=== PATIENT | female | born 1980 | race Caucasian/White ===

== ENCOUNTER → 2017-07-31 | Outpatient (CLI) | payer BC ==
[~2017-07-31] MED LIST: ACET-3017 PO; IBUP800T37 PO; LACT460C3 PO; PANT40TA65 PO
--- NOTE | 2017-07-31 09:55 | RADIOLOGY IMAGING REPORT ---
[place] [facility] [place] NAME: Tara Stoner : 1980 MR: [id number] V: [id number] EXAM DATE: ORDERING PHYSICIAN: ABDULAZIZ COSME TECHNOLOGIST: [place] [facility] [place] Traa Stoner : 1980 Visit/Account:[id number] Date of Sevice: 07/31/2017 GALLBLADDER HISTORY: Belching COMPARISON: None. FINDINGS: Gallbladder: A small amount layering debris identified within the gallbladder. There is no evidence of gallbladder wall thickening. There was a positive Rene sign by technologist notation. Liver: Negative. Common duct: Normal, 3.9 mm diameter. Pancreas: Unremarkable Right kidney: Right kidney appears unremarkable as imaged measuring 10.5 cm in length with no evidenc e of hydronephrosis Upper abdominal aorta and IVC: Patent. Ascites: None visualized. IMPRESSION: There is a small matter decreasing within the gallbladder although no evidence of gallbladder wall th ickening or biliary ductal dilatation. There was a positive Rene sign by technologist notation Report Dictated By: Kymberly Manzanares MD at 07/31/2017 9:49 AM Report E-Signed By: Kymberly Manzanares MD at 07/31/2017 9:51 AM HENRYN:YULIANA
== END ==
LOC: US 07-27 01:51
PROVIDERS: ATTEND Surgery
DX: K81.9 Cholecystitis, unspecified (principal); R19.8 Other specified symptoms and signs involving the digestive system and abdomen
CPT/HCPCS: 76705

== ENCOUNTER 2017-08-20 00:40 | Day surgery (SDC) | payer BC ==
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
[~2017-08-20] VITALS: Ht 157.5 cm; Wt 57.6 kg
[2017-08-20] VITALS (7 sets, daily range): BP systolic 106–116; BP diastolic 60–80
[2017-08-20 06:38] LABS: PLATELET COUNT, AUTOMATED 237 K/uL (150-450)
[2017-08-20] MEDS ORDERED: NORMOSOL R SOLN(*) 1000 ML BAG 1,000 ML IV PRN (06:45)
[2017-08-20] MEDS ORDERED: LIDOCAINE/SOD BICARB 8.4% SYR ID ONE (06:45)
[2017-08-20] MEDS ORDERED: MIDAZOLAM 2 MG/2 ML VIAL IVP PRN (06:45)
[2017-08-20] MEDS ORDERED: FAMOTIDINE 20 MG TAB PO ONE (06:45)
[2017-08-20] MEDS ORDERED: CELECOXIB 200 MG CAP PO ONE (06:45)
[2017-08-20] MEDS ORDERED: INDOCYANINE GREEN 25 MG VIAL IVP ONE (06:45)
[2017-08-20] MEDS ORDERED: AMPICILLIN/SULBACT (*) 3 GM VL 3 GM in NS(*) 0.9% 100 ML BAG 100 ML IVPB ONE (06:45)
[2017-08-20] MEDS ORDERED: cefOXitin/DEX(*) 2GM/50ML PREM 50 ML IVPB ONE (06:45)
[2017-08-20] MEDS ORDERED: HYDROmorphone HCL 2 MG TAB PO ONE (06:45)
--- NOTE | 2017-08-20 07:35 | Post Operative Note ---
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
[2017-08-20] MEDS ORDERED: DEXAMETHASONE SOD PHOS 10MG/ML ONE (07:36)
[2017-08-20] MEDS ORDERED: ONDANSETRON 4 MG/2 ML VIAL ONE ×2 (07:36→09:36)
[2017-08-20] MEDS ORDERED: ROCURONIUM BROM 10 MG/ML 10 ML ONE (07:36)
[2017-08-20] MEDS ORDERED: LIDOCAINE MPF 1% 5 ML VIAL ONE (07:36)
[2017-08-20] MEDS ORDERED: PROPOFOL EMUL(*) 10MG/ML 20 ML 40 ML ONE (07:36)
[2017-08-20] MEDS ORDERED: KETOROLAC 30 MG/ML VIAL ONE (07:37)
[2017-08-20] MEDS ORDERED: fentaNYL CITR 100 MCG/2 ML AMP ONE ×2 (07:39→09:32)
[2017-08-20] MEDS ORDERED: SUGAMMADEX SOD 200 MG/2 ML SDV ONE (09:01)
[2017-08-20] MEDS ORDERED: HYDROmorphone HCL 2 MG/ML SDV ONE (09:03)
[2017-08-20] MEDS ORDERED: OXYC-854 PO (09:35)
[2017-08-20] MEDS ORDERED: DOCU-416 PO (09:35)
--- NOTE | 2017-08-20 09:39 | Short(Outpt) Discharge Summary ---
Discharge Summary Reason for Hosp/Final Diag: (1) Cholelithiasis Status: Chronic Hospital Course & Plan: Robotic cholecystectomy by Dr. Cosme and diagnostic laparoscopy with gynecologic biopsies by Dr. Grant completed without problems. (2) Nausea Status: Chronic (3) Upper abdominal pain Status: Chronic Departure Discharge to: Home, Self Care Discharge Instructions Home Meds Active Scripts Docusate Sodium (COLACE) 100 Mg Capsule, 1 CAP PO BID, #30 CAP 0 Refills TAKE WITH A FULL GLASS OF WATER Prov:ABDULAZIZ COSME MD 08/20/17 Oxycodone Hcl/Acet 5/325 Mg (ENDOCET 5-325 TABLET) 1 Each Tablet, 1-2 TAB PO Q4H Y for PAIN, #30 TAB 0 Refills Prov:ABDULAZIZ COSME MD 08/20/17 Reported Medications Lactobacillus Acidophilus (FLORAJEN) 460 Mg Capsule, 460 MG PO QDAY, CAPSULE 07/20/17 Ibuprofen (IBUPROFEN) 800 Mg Tablet, 1 TAB PO 2-3XD, TAB 07/20/17 Acetaminophen With Codeine # 3 (TYLENOL WITH CODEINE #3 TABLET) 1 Each Tablet, 1 EACH PO PRN, TAB 07/20/17 Follow up Referrals: General Surgery - 09/04/17 @ Surgery, General with Abdulaziz Cosme Md You have a follow up appointment scheduled with Dr. Cosme on 09/04/17, at 10:00am. 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 After showering, leave the incisions open to air but leave the steristrips in place until they fall off on their own. Do not immerse the incisions for 2 weeks. Problem Qualifiers (1) Cholelithiasis: Cholelithiasis location: gallbladder Cholecystitis presence: without cholecystitis Biliary obstruction: without biliary obstruction Qualified Codes: K80.20 - Calculus of gallbladder without cholecystitis without obstruction ABDULAZIZ COSME MD Aug 20, 2017 09:39
[2017-08-20] MEDS ORDERED: MEPERIDINE 50 MG/ML SYR ONE (09:40)
[2017-08-20] MEDS ORDERED: ROPIVACAINE 0.5% 20 ML VIAL ONE (09:43)
--- NOTE | 2017-08-20 09:49 | Post Operative Progress Note ---
Post Operative Progress Note Date: Aug 20, 2017 Time: 09:41 Surgeon: Lalita Dictation number: [id number] Anesthesia: GETA by Dr. Luna Pre-Op Diagnosis: Symptomatic gallstones Post-Op Diagnosis: SOMMER Findings: C/W dx Procedure(s): Robotic lap ifeanyi Dx laparoscopy with gynecologic bx by Dr. Grant Specimen Removed:(May be N/A): GB and contents Complications: None Fluids: See anesthesia record Estimated Blood Loss: Minimal Date OP Note Dictated: Aug 20, 2017 Time OP Note Dictated: 09:42 ABDULAZIZ COSME MD Aug 20, 2017 09:49
[2017-08-20] MEDS ORDERED: PROMETHAZINE 25 MG/ML 1 ML AMP ONE (09:58)
--- NOTE | 2017-08-20 17:25 | OPERATIVE REPORT 1 ---
EVENT DATE: August 20, 2017 SURGEON: Vin Grant MD ANESTHESIOLOGIST: Bereket Luna MD ANESTHESIA: General. WARBLE SAW OPERATOR: Vin Celis MD PREOPERATIVE DIAGNOSES 1. Dyspareunia. 2. Pelvic pain. POSTOPERATIVE DIAGNOSES 1. Dyspareunia. 2. Pelvic pain. PROCEDURE PERFORMED Laparoscopic excision of endometriosis lesion with fulguration of endometriosis. COMPLICATIONS None. FLUIDS Normosol 700 mL IV. ESTIMATED BLOOD LOSS Minimal. INDICATIONS The patient is a 37-year-old female with worsening history of dyspareunia and pelvic pain. She had been tried on control pills and medical management with no improvement. After a discussion of the risks and alternatives, the patient desired to proceed with diagnostic laparoscopy and excision or removal of any disease or damaged tissue. FINDINGS Uterus 7 x 6 cm. Normal ovaries bilaterally. She had endometriosis in the posterior cul-de-sac along with the left uterosacral ligament. DESCRIPTION OF PROCEDURE After informed consent was obtained, the patient was taken to the operating room with the IV running and placed in the supine position where general anesthesia was attained without difficulty. She was then placed in the [facility] and examined under anesthesia with the above findings. She was prepped and draped in the usual fashion. Her bladder was drained. A side- out speculum was placed into the vagina. The cervix was grasped with a single- toothed tenaculum. The uterus sounded to 9 cm. A #8 ANTON uterine manipulator was advanced into the uterine cavity. The legs were lowered. Attention was then turned to the abdomen. Dr. Celis placed a Suresh port into the umbilicus. A 5 mm port was placed in the right lateral quadrant. The abdomen was insufflated. The patient was placed in Trendelenburg positioning. The endometriosis lesions were identified in the posterior cul-de-sac. The ovaries appeared normal. The anterior cul-de-sac appeared normal. The biopsy forceps was used to biopsy the lesion in the left uterosacral ligament. A Gyrus cutting forceps was then used to remove the lesion. The endometriosis lesions in the posterior cul-de-sac were fulgurated with the Gyrus cutting forceps along with the peritoneal edges. There was some oozing from the biopsy site. Chandrika was used to create hemostasis. All of the laparoscopic instruments were then removed, and then Dr. Celis was then prepared for the robotic cholecystectomy. The ANTON was removed from the uterus. This ended Dr. Grant's portion of the case. PHILIP
--- NOTE | 2017-08-20 20:52 | OPERATIVE REPORT 1 ---
EVENT DATE: August 20, 2017 SURGEON: 1) Vin Celis MD. 2) Vin Grant MD (please refer to his operative report for details of his portion of the procedure). ANESTHESIOLOGIST: Bereket Luna MD ANESTHESIA: General. PREOPERATIVE DIAGNOSES 1. Symptomatic gallstones. 2. Pelvic pain. POSTOPERATIVE DIAGNOSES 1. Symptomatic gallstones. 2. Pelvic pain. PROCEDURES PERFORMED 1. Robotic cholecystectomy. 2. Diagnostic laparoscopy performed by Dr. Grant of Gynecology with biopsies of the patient's uterus. SPECIMENS 1. Gallbladder. 2. Pelvic biopsies by Dr. Grant. INDICATIONS This is a 37-year-old female who was referred to me by Dr. Grant with pelvic pain, but also with some right-sided abdominal pain. She was found to have gallstones on her ultrasound. Because she had postprandial bloating and nausea , she was requesting to have her gallbladder removed concurrent with Dr. Grant' s plan for a diagnostic laparoscopy to look for endometriosis. DESCRIPTION OF PROCEDURE The patient was brought to the operating room and placed supine on the operating table. General endotracheal anesthesia was administered. She was placed in the [facility]. Dr. Grant placed a uterine manipulator, and then I was able to establish access to her abdomen. I injected the infraumbilical skin with 0.5% ropivacaine plain and made a curvilinear smiley face type incision in the infraumbilical rim. I dissected through the dermis and the subcutaneous fat. I identified the midline fascia. I made a vertical incision in the midline fascia and grasped the fascial edges with Melida clamps. I then entered the peritoneal cavity easily with the scalpel. I then placed two interrupted 0 Vicryl sutures transversely through the vertical fascial defect and then inserted a 12 mm Suresh-type port through this wound and secured it in place with suture. I insufflated the abdomen to a pressure of 15 mmHg and then inserted a 5 mm, zero-degree scope through this port. Under direct visualization, I placed a 5 mm port in the right mid abdomen. The patient was placed in Trendelenburg. Dr. Grant explored the patient's pelvis and found to suspicious areas that he biopsied and ablated. We ended up putting another 5 mm port in the left mid abdomen to help with retraction. After he was done with his part, he scrubbed out after removing the uterine manipulator. We swapped out the existing ports for a robotic Suresh 12 mm port at the umbilicus and two 8 mm ports. I then placed another 8 mm port more laterally in the left upper quadrant in the subcostal space in the anterior axillary line. The patient was placed in reverse Trendelenburg and planed towards her left. The robot was docked to the ports, the instruments inserted, and targeting completed. I then scrubbed out and went to the console. I identified the gallbladder, grasped the fundus of the gallbladder with the ProGrasp in the left upper quadrant arm and retracted this towards the patient' s right shoulder. I retracted the infundibulum towards the patient's right hip. I used the hook to divide the peritoneum overlying the infundibulum and up both the medial and lateral aspects of the gallbladder. I stripped down the peritoneum and subperitoneal contents until I could clearly identify the cystic duct and artery. These were cleaned off circumferentially, and the artery was actually in the way of the duct, so I clipped this proximally and distally and divided it between clips. I then continued to clean off the cystic duct, and once this was cleaned off, I used the Firefly to confirm I was at the cystic duct and that I was well away from the common bile duct. I then placed three clips distally on the cystic duct and one at the infundibulum-cystic duct junction. I divided the duct between the upper two most clips. I then divided the posterior attachments of the gallbladder, it from the gallbladder fossa, and then the gallbladder was placed in the surgical specimen retrieval bag and removed from the abdomen through the umbilical port site. I then inspected the gallbladder fossa as well as the cystic duct and artery stumps, and there was no bleeding or bile leaks anywhere. I then removed the instruments, undocked the robot, reinserted the camera into the umbilical port, and I was able to look down in the pelvis and ensure there was no bleeding. I reinspected the gallbladder fossa, and there was no bleeding there either. I then removed the camera, removed all the ports, desufflated the abdomen, and placed another 0 Vicryl suture in a [id number] fashion in the umbilical port fascia. I then tied all the three of these down with good reapproximation of the fascial edges with no remaining fascial defect. I then closed the skin at each port site with 4-0 Monocryl subcuticular sutures. The skin was cleaned and dried, and Steri-Strips were applied, followed by sterile surgical dressings. The patient was awakened and extubated in the operating room and transported to the recovery room in stable condition having tolerated the procedure without any apparent problems. PHILIP
== END 2017-08-20 10:24 | disposition home or self-care (01) ==
LOC: OR 00:40
PROVIDERS: ATTEND Obstetrics & Gynecology
DX: N94.10 Unspecified dyspareunia (principal); R10.2 Pelvic and perineal pain; K80.80 Other cholelithiasis without obstruction
CPT/HCPCS: 36415; 47562; 58662; 84703; 85025; 88304; 88305; J0295; J1100; J1170; J1885; J2001; J2175; J2405; J2550; J2704; J2795; J3010; J7050; S2900

== ENCOUNTER → 2017-09-21 | Outpatient (CLI) | payer BC ==
[~2017-09-21] MED LIST changes: +BARIUM SULFATE 176 GM BTL PO ONE; +BARIUM SULFATE 340 GM POWD ONE; +DOCU-416 PO; +GOLYTE PO; +ONDA4TAB PO; +OXYC-854 PO
--- NOTE | 2017-09-21 11:26 | RADIOLOGY IMAGING REPORT ---
FACILITY: [facility] PATIENT NAME: Tara Stoner : 1980 MR: [id number] V: [id number] EXAM DATE: ORDERING PHYSICIAN: ABDULAZIZ COSME TECHNOLOGIST: [place] [facility] [place] Tara St[place] : 1980 Visit/Account:[id number] Date of Sevice: 09/21/2017 Examination: Upper gastrointestinal exam with small bowel follow-through HISTORY: Abdominal pain. Nausea. Cramping. Recent cholecystectomy. TECHNIQUE: A rail detector car operator image is obtained. The patient was given thin and thick barium to drink. Single column and air contrast views are obtained of the esophagus, stomach and duodenum. Additional barium was administered and overhead images were obtained through 60 minutes. At the 60 minute time point, spot images were obtained of the small bowel. Fluoroscopy time was 2.3 minutes with a dose area pro duct of 1366.74uGy*m2. FINDINGS: The rail detector car operator image demonstrates a normal bowel gas pattern. Pelvic phleboliths noted. The esophagus is in caliber. No focal narrowing or mucosal abnormality seen. There is normal esopha geal motility. Views of the stomach are normal. No filling defect. Duodenum is normally located. There is a nicholas l duodenal fold pattern. Images of the small bowel through 60 minutes are normal. There is a normal transit time of barium th rough the small bowel. No focally dilated or narrowed small bowel loops are seen. The fold pattern is normal. Spot images of the bowel loops and the terminal ileum are normal. Appendix is seen and i s unremarkable. IMPRESSION: 1. Normal upper GI examination with normal small bowel follow-through. Report Dictated By: Abdias Ortiz at 09/21/2017 11:10 AM Report E-Signed By: Abdias Ortiz at 09/21/2017 11:23 AM WSN:[email or web address]
== END ==
LOC: RAD 09-18 00:38
PROVIDERS: ATTEND Surgery
DX: I87.8 Other specified disorders of veins (principal)
CPT/HCPCS: 74245

== ENCOUNTER 2017-09-30 01:51 | Day surgery (SDC) | payer BC ==
[~2017-09-30] VITALS: Ht 157.5 cm; Wt 57.2 kg
[~2017-09-30 01:51] MED LIST changes: -BARIUM SULFATE 176 GM BTL PO ONE; -BARIUM SULFATE 340 GM POWD ONE
[2017-09-30] MEDS ORDERED: PROPOFOL EMUL(*) 10MG/ML 20 ML 60 ML ONE (07:01)
[2017-09-30 10:14] VITALS: BP 122/74
[2017-09-30 10:18] LABS: PLATELET COUNT, AUTOMATED 268 K/uL (150-450)
[2017-09-30] MEDS ORDERED: LIDOCAINE/SOD BICARB 8.4% SYR ID ONE (11:45)
[2017-09-30] MEDS ORDERED: NORMOSOL R SOLN(*) 1000 ML BAG 1,000 ML IV PRN (11:45)
[2017-09-30 13:59] VITALS: BP 89/48
--- NOTE | 2017-09-30 14:07 | Short(Outpt) Discharge Summary ---
Discharge Summary Reason for Hosp/Final Diag: (1) Upper abdominal pain Status: Chronic Hospital Course & Plan: EGD with biopsies and colonoscopy with biopsies completed without problems. (2) Loose stools Status: Chronic (3) Nausea Status: Chronic Departure Discharge to: Home, Self Care Discharge Instructions Home Meds Active Scripts Ondansetron (ZOFRAN ODT) 4 Mg Tab.rapdis, 1 TAB PO TID Y for NAUSEA, #5 TAB.MARCELLA 0 Refills Prov:ABDULAZIZ COSME MD 09/15/17 Peg/Electrolytes (GOLYTELY SOLUTION) 4,000 Ml Soln, 1 GAL PO ONCE, #1 GAL 0 Refills Prov:ABDULAZIZ COSME MD 09/15/17 Docusate Sodium (COLACE) 100 Mg Capsule, 1 CAP PO BID, #30 CAP 0 Refills TAKE WITH A FULL GLASS OF WATER Prov:ABDULAZIZ COSME MD 08/20/17 Reported Medications Lactobacillus Acidophilus (FLORAJEN) 460 Mg Capsule, 460 MG PO QDAY, CAPSULE 07/20/17 Ibuprofen (IBUPROFEN) 800 Mg Tablet, 1 TAB PO 2-3XD, TAB 07/20/17 Follow up Referrals: General Surgery - 10/26/17 @ Surgery, General with Abdulaziz Cosme Md You have a follow up appointment scheduled with Dr. Cosme on 10/26/17, at 1:30pm. Diet: Regular Activity: As Tolerated Special Instructions: Your upper endoscopy and colonoscopy were completed without problems. Everything looked normal except for a tiny colon polyp that I removed. No inflammation, ulcers, cancer, etc. I took a lot of biopsies and I will see you back in my office and will discuss all the results with you and we'll come up with a game plan to address your symptoms. ABDULAZIZ COSME MD Sep 30, 2017 14:07
[2017-09-30 14:15] VITALS: BP 82/72
[2017-09-30 14:30] VITALS: BP 113/64
[2017-09-30 14:40] VITALS: BP 117/68
[2017-09-30 14:50] VITALS: BP 99/67
== END 2017-09-30 14:55 | disposition home or self-care (01) ==
LOC: OR 01:51
PROVIDERS: ATTEND Surgery
DX: K63.5 Polyp of colon (principal)
CPT/HCPCS: 00811; 36415; 43239; 45385; 82248; 83516; 83690; 85025; 85651; 86140; 87077; J2704; 82040; 82247; 82310; 82374; 82435; 82565; 82947; 84075; 84132; 84155; 84295; 84450; 84460; 84520; 88305

== ENCOUNTER 2017-10-20 13:30 | Emergency (ER) | payer BC ==
[2017-10-20] MEDS ORDERED: ONDANSETRON 4 MG/2 ML VIAL IVP ONE ×2 (14:15→17:50)
[2017-10-20 14:23] LABS: PLATELET COUNT, AUTOMATED 238 K/uL (150-450)
[2017-10-20] MEDS ORDERED: NS(*) 0.9% 1000 ML BAG 1,000 ML IV ONE (15:20)
[2017-10-20] MEDS ORDERED: KETOROLAC 30 MG/ML VIAL IVP ONE (15:30)
[2017-10-20] MEDS ORDERED: METOCLOPRAMIDE 10 MG/2 ML SDV IVP ONE (16:40)
--- NOTE | 2017-10-20 16:40 | RADIOLOGY IMAGING REPORT ---
FACILITY: [facility] PATIENT NAME: Tara Stoner : 1980 MR: [id number] V: [id number] EXAM DATE: [id number] ORDERING PHYSICIAN: SHANKAR MILLER TECHNOLOGIST: Location: [facility] Patient: Tara Stoner : 1980 Visit/Account:[id number] Date of Sevice: 10/20/2017 EXAMINATION: Limited right upper quadrant ultrasound Additional Pertinent history: Possible retained stone status post cholecystectomy. COMPARISON STUDIES: 07/14/2017. FINDINGS: Gallbladder: Surgically removed. Small residual fluid is seen in the gallbladder fossa most likely po stsurgical. No definitive fluid collections. Liver: negative Common duct: Mildly enlarged measuring 8.3 mm.. This is more so in the mid aspect. The pancreatic sukhi t at the pancreatic head is normal measuring 5.6 mm. No intraductal abnormality is appreciated. Pancreas: Normal Right kidney: negative Proximal IVC/Aorta: negative IMPRESSION: Status post cholecystectomy. The common bile duct is mildly dilated in the mid aspect however appears to taper normally to the pancreatic head. No intraductal abnormality is identified. This nonspecific but could be due to the recent cholecystectomy. Report Dictated By: Soto Hudson at 10/20/2017 4:33 PM Report E-Signed By: Soto Hudson at 10/20/2017 4:36 PM WSN:[id number]
[2017-10-20] MEDS ORDERED: IOPAMIDOL 76% 75 ML INFUS BTL 75 ML ONE (16:59)
--- NOTE | 2017-10-20 17:40 | RADIOLOGY IMAGING REPORT ---
[place] [facility] [place] NAME: Tara Stoner : 1980 MR: [id number] V: [id number] EXAM DATE: [id number] ORDERING PHYSICIAN: SHANKAR MILLER TECHNOLOGIST: [place] [facility] [place]: Tara Stoner : 1980 Visit/Account:[id number] Date of Sevice: 10/20/2017 ABDOMEN/PELVIS WITH CONTRAST HISTORY: ruq pain with transaminitis TECHNIQUE: Following administration of IV contrast contiguous axial images acquired through the abdom en/pelvis. Coronal and sagittal reformatting also performed. Dose Lowering Technique One of the following dose optimization techniques was utilized in the performance of this exam: Autom ated exposure control; adjustment of the mA and/or kV according to the patient's size; or use of an i terative reconstruction technique. Specific details can be referenced in the facility's radiology C T exam operational policy. CONTRAST: 75 mL Isovue-370 COMPARISON: Liver ultrasound performed today FINDINGS: Visualized lung bases: Spiculated noncalcified mass in the right middle lobe measuring 1.1 x 0.8 cm . There is an additional 5 mm noncalcified mass anterior right middle lobe. 4 mm subpleural noncalcified nodule lateral aspect of the right lower lobe best seen on image five o f series 5 Hepatobiliary: Postsurgical changes from a cholecystectomy. The common bile duct is dilated up to 8 mm. There is also mild dilatation of the intrahepatic biliary radicles. An obstructing stone is no t seen within the biliary tree. Spleen: Negative. Adrenals: Negative. Pancreas: Negative. Kidneys ureters or bladder: Negative. Genitalia: Retroverted uterus 1.7 cm thick-walled enhancing structure in the right adnexa possibly a collapsing cyst although further evaluation with pelvic ultrasound would be helpful GI: Negative. Vessels/spaces/nodes: Negative. Bones/soft tissues: Small umbilical hernia containing fat. No aggressive appearing bone lesions are seen Additional findings: None pertinent. IMPRESSION: There are two noncalcified masses in the right middle lobe. The largest measures 1.1 x 0.8 cm. Ther e is an additional four mm noncalcified mass in the right lower lobe. The Fleischner Society recomme ndations are as follows For nodules this size in a low-risk patient (minimal or absent smoking histor y, no history of malignancy), a 3-6 month follow-up CT is recommended, then consider CT at 18-24 brittny hs. In a high risk patient, (smoking or malignancy history), a CT at 3-6 months then at 18-24 months is recommended. There are postsurgical changes from cholecystectomy with dilatation of the intra and extrahepatic anna iary tree. An obstructing calculus is not seen however given the clinical history MRCP may be of jose manuel ue Retroverted uterus. There is a 1.7 cm thick-walled enhancing structure in the right adnexa possibly a collapsing cyst although further evaluation with pelvic ultrasound would be helpful Report Dictated By: Kymberly Manzanares MD at 10/20/2017 5:24 PM Report E-Signed By: Kymberly Manzanares MD at 10/20/2017 5:35 PM HENRYN:YULIANA
[2017-10-20] MEDS ORDERED: ONDA4TAB PO (18:05)
--- NOTE | 2017-10-20 18:09 | ER Report ---
History and Physical Time Seen By MD: 15:30 Hx. of Stated Complaint: pt has hx of endometriosis and is having severe lower abdomen adn back pain today as well as vomiting HPI/ROS This is a 37-year-old female with a history of endometriosis who presents to the emergency department with both midepigastric, right upper quadrant and bilateral pelvic pain. Also with nausea and vomiting. She states that the pelvic pain is ongoing, and she knows that that pain is from her endometriosis. She is status post a laparoscopic cholecystectomy in mid August [address] Rosado. She states that she has had diffuse, nonfocal abdominal pain, and intermittent nausea vomiting since the surgery. She denies fever chills. No vaginal bleeding or dysuria. She does not take Tylenol and only drinks alcohol occasionally. Remainder of the 14 system rev: Yes Allergies: Coded Allergies: prochlorperazine (Verified Allergy, Intermediate, RASH, 10/20/17) Home Meds Active Scripts Ondansetron (ZOFRAN ODT) 4 Mg Tab.rapdis, 1 TAB PO TID Y for NAUSEA, #5 TAB.MARCELLA 0 Refills Prov:ABDULAZIZ COSME MD 09/15/17 Reported Medications Lactobacillus Acidophilus (FLORAJEN) 460 Mg Capsule, 460 MG PO QDAY, CAPSULE 07/20/17 Ibuprofen (IBUPROFEN) 800 Mg Tablet, 1 TAB PO 2-3XD, TAB 07/20/17 Discontinued Scripts Docusate Sodium (COLACE) 100 Mg Capsule, 1 CAP PO BID, #30 CAP 0 Refills TAKE WITH A FULL GLASS OF WATER Prov:ABDULAZIZ COSME MD 08/20/17 Reviewed Nurses Notes: Yes Old Medical Records Reviewed: Yes Hx Smoking: Yes (VAPER AT TIMES) Smoking Status: Former Smoker Hx Substance Use Disorder: No Hx Alcohol Use: No Constitutional Vital Sign - Last 24 Hours 10/20/17 10/20/17 10/20/17 10/20/17 13:39 14:00 14:18 14:30 Temp 98.0 Pulse 80 73 Resp 15 B/P (MAP) 109/62 120/63 (82) 108/60 (76) 106/70 (82) Pulse Ox 96 95 10/20/17 10/20/17 10/20/17 10/20/17 15:00 15:05 15:30 15:35 Pulse 83 81 B/P (MAP) 93/59 (70) 108/74 (85) Pulse Ox 94 94 92 10/20/17 10/20/17 16:30 16:35 Pulse 72 B/P (MAP) 110/53 (72) Pulse Ox 97 Physical Exam General Appearance: The patient is alert, has no immediate need for airway protection and no current signs of toxicity. Eyes: Pupils equal and round no injection. Respiratory: Chest is non tender, lungs are clear to auscultation. Cardiac: regular rate and rhythm Gastrointestinal: Abdomen is soft with TTP of the mid epigastric and RUQ Musculoskeletal: Neck: Neck is supple and non tender. Extremities have full range of motion and are non tender. Skin: No rashes or lesions. DIFFERENTIAL DIAGNOSIS: After history and physical exam differential diagnosis was considered for abdominal pain including but not limited to appendicitis, cholecystitis, gastritis and urinary tract infection, Medical Decision Making Data Points Result Diagram: 10/20/17 1340 10/20/17 1340 Laboratory Hematology Test 10/20/17 13:40 10/20/17 14:43 Red Blood Count 5.29 M/uL (4.17-5.56) Mean Corpuscular Volume 91.4 fL (80.0-96.0) Mean Corpuscular Hemoglobin 32.7 pg (26.0-33.0) Mean Corpuscular Hemoglobin Concent 35.8 g/dL (32.0-36.0) Red Cell Distribution Width 12.7 % (11.5-14.5) Mean Platelet Volume 7.7 fL (7.2-11.1) Neutrophils (%) (Auto) 90.1 % (39.4-72.5) Lymphocytes (%) (Auto) 6.5 % (17.6-49.6) Monocytes (%) (Auto) 2.1 % (4.1-12.4) Eosinophils (%) (Auto) 1.0 % (0.4-6.7) Basophils (%) (Auto) 0.3 % (0.3-1.4) Nucleated RBC Relative Count (auto) 0.0 /100WBC Neutrophils # (Auto) 8.6 K/uL (2.0-7.4) Lymphocytes # (Auto) 0.6 K/uL (1.3-3.6) Monocytes # (Auto) 0.2 K/uL (0.3-1.0) Eosinophils # (Auto) 0.1 K/uL (0.0-0.5) Basophils # (Auto) 0.0 K/uL (0.0-0.1) Nucleated RBC Absolute Count (auto) 0.00 K/uL Sodium Level 139 mmol/L (137-145) Potassium Level 3.9 mmol/L (3.5-5.0) Chloride Level 106 mmol/L (98-107) Carbon Dioxide Level 19 mmol/L (22-31) Blood Urea Nitrogen 14 mg/dl (7-18) Creatinine 0.70 mg/dl (0.52-1.04) Glomerular Filtration Rate Calc > 60.0 Random Glucose 86 mg/dl (75-110) Calcium Level 9.6 mg/dl (8.4-10.2) Total Bilirubin 1.4 mg/dl (0.2-1.3) Aspartate Amino Transf (AST/SGOT) 397 U/L (0-35) Alanine Aminotransferase (ALT/SGPT) 191 U/L (0-56) Alkaline Phosphatase 89 U/L (0-126) Total Protein 7.6 gm/dl (6.3-8.2) Albumin 4.5 g/dl (3.5-5.0) Lipase 113 U/L (23-300) Human Chorionic Gonadotropin, Qual Negative (NEGATIVE) Urine Color Yellow Urine Clarity Slightly-cloudy Urine pH 5.0 pH (4.8-9.5) Urine Specific [place] 1.020 Urine Protein Negative mg/dL (NEGATIVE) Urine Glucose (UA) Negative mg/dL (NEGATIVE) Urine Ketones 20 mg/dL (NEGATIVE) Urine Blood Negative (NEGATIVE) Urine Nitrite Negative (NEGATIVE) Urine Bilirubin Negative (NEGATIVE) Urine Urobilinogen Negative mg/dL (0.2-1.9) Urine Leukocyte Esterase Negative (NEGATIVE) Urine RBC None /HPF (0-2/HPF) Urine WBC <1 /HPF (0-5/HPF) Urine Squamous Epithelial Cells Many /LPF (</=FEW) Urine Bacteria Negative /HPF (NONE-FEW) Urine Mucus None /HPF (NONE-FEW) Chemistry Test 10/20/17 13:40 10/20/17 14:43 White Blood Count 9.5 k/uL (4.5-11.0) Red Blood Count 5.29 M/uL (4.17-5.56) Hemoglobin 17.3 g/dL (12.0-16.0) Hematocrit 48.4 % (34.0-47.0) Mean Corpuscular Volume 91.4 fL (80.0-96.0) Mean Corpuscular Hemoglobin 32.7 pg (26.0-33.0) Mean Corpuscular Hemoglobin Concent 35.8 g/dL (32.0-36.0) Red Cell Distribution Width 12.7 % (11.5-14.5) Platelet Count 238 K/uL (150-450) Mean Platelet Volume 7.7 fL (7.2-11.1) Neutrophils (%) (Auto) 90.1 % (39.4-72.5) Lymphocytes (%) (Auto) 6.5 % (17.6-49.6) Monocytes (%) (Auto) 2.1 % (4.1-12.4) Eosinophils (%) (Auto) 1.0 % (0.4-6.7) Basophils (%) (Auto) 0.3 % (0.3-1.4) Nucleated RBC Relative Count (auto) 0.0 /100WBC Neutrophils # (Auto) 8.6 K/uL (2.0-7.4) Lymphocytes # (Auto) 0.6 K/uL (1.3-3.6) Monocytes # (Auto) 0.2 K/uL (0.3-1.0) Eosinophils # (Auto) 0.1 K/uL (0.0-0.5) Basophils # (Auto) 0.0 K/uL (0.0-0.1) Nucleated RBC Absolute Count (auto) 0.00 K/uL Glomerular Filtration Rate Calc > 60.0 Calcium Level 9.6 mg/dl (8.4-10.2) Total Bilirubin 1.4 mg/dl (0.2-1.3) Aspartate Amino Transf (AST/SGOT) 397 U/L (0-35) Alanine Aminotransferase (ALT/SGPT) 191 U/L (0-56) Alkaline Phosphatase 89 U/L (0-126) Total Protein 7.6 gm/dl (6.3-8.2) Albumin 4.5 g/dl (3.5-5.0) Lipase 113 U/L (23-300) Human Chorionic Gonadotropin, Qual Negative (NEGATIVE) Urine Color Yellow Urine Clarity Slightly-cloudy Urine pH 5.0 pH (4.8-9.5) Urine Specific [place] 1.020 Urine Protein Negative mg/dL (NEGATIVE) Urine Glucose (UA) Negative mg/dL (NEGATIVE) Urine Ketones 20 mg/dL (NEGATIVE) Urine Blood Negative (NEGATIVE) Urine Nitrite Negative (NEGATIVE) Urine Bilirubin Negative (NEGATIVE) Urine Urobilinogen Negative mg/dL (0.2-1.9) Urine Leukocyte Esterase Negative (NEGATIVE) Urine RBC None /HPF (0-2/HPF) Urine WBC <1 /HPF (0-5/HPF) Urine Squamous Epithelial Cells Many /LPF (</=FEW) Urine Bacteria Negative /HPF (NONE-FEW) Urine Mucus None /HPF (NONE-FEW) Urinalysis Test 10/20/17 14:43 Urine Color Yellow Urine Clarity Slightly-cloudy Urine pH 5.0 pH (4.8-9.5) Urine Specific [place] 1.020 Urine Protein Negative mg/dL (NEGATIVE) Urine Glucose (UA) Negative mg/dL (NEGATIVE) Urine Ketones 20 mg/dL (NEGATIVE) Urine Blood Negative (NEGATIVE) Urine Nitrite Negative (NEGATIVE) Urine Bilirubin Negative (NEGATIVE) Urine Urobilinogen Negative mg/dL (0.2-1.9) Urine Leukocyte Esterase Negative (NEGATIVE) Urine RBC None /HPF (0-2/HPF) Urine WBC <1 /HPF (0-5/HPF) Urine Squamous Epithelial Cells Many /LPF (</=FEW) Urine Bacteria Negative /HPF (NONE-FEW) Urine Mucus None /HPF (NONE-FEW) EKG/Imaging Imaging Results: Ultrasound of the RUQ was obtained. The results of the study are s/p ifeanyi, mild free fluid in the gall bladder fossa, normal post op CBD. The study was read by the radiologist. I viewed the images myself on the PACS system. Results: CT scan of the abdomen/pelvis was obtained. The results of the study are normal abdomen for the most part, non specific lung nodules. The study was read by the radiologist. I viewed the images myself on the PACS system. ED Course/Re-evaluation ED Course 37-year-old female who is 2 months status post laparoscopic cholecystectomy. She presented to the emergency department today with pain that is typical for her endometriosis pain as well as pain in the midepigastric and right upper quadrant accompanied with nausea and vomiting that she reports having since her gallbladder surgery 2 months ago. Noted is a transaminitis and an elevated T bili. This could be from a viral gastritis given her accompanying nausea and vomiting. She was given IV fluids, Reglan, and Toradol. I spoke with Dr. Rosado about her ultrasound findings and transaminitis. He will follow up with her on Thursday and follow her LFTs. In the meantime I told her to avoid Tylenol and alcohol. I advised her of the lung nodules and the fact that she will need a follow-up CT scan in 3-6 months. Decision to Disposition Date: Oct 20, 2017 Decision to Disposition Time: 18:04 Depart Departure Latest Vital Signs Vital Signs Date Time Temp Pulse Resp B/P (MAP) Pulse Ox O2 Delivery O2 Flow Rate FiO2 10/20/17 16:35 72 97 10/20/17 16:30 110/53 (72) 10/20/17 13:39 98.0 15 Impression: Primary Impression: Transaminitis Additional Impression: Nausea Condition: Improved Disposition: HOME OR SELF-CARE Referrals: ABDULAZIZ BATES MD (PCP) New Scripts Ondansetron (ZOFRAN ODT) 4 Mg Tab.rapdis 4 MG PO Q6H Y for NAUSEA/VOMITING, #20 TAB.MARCELLA 0 Refills Prov: SHANKAR MILLER MD 10/20/17 Patient Instructions: Acute Nausea and Vomiting (ED) Additional Instructions: Please review your CT scan with your primary doctor. You will need a repeat CT scan of your lungs in 3-6 months. Problem Qualifiers SHANKAR MILLER MD Oct 20, 2017 18:09
[2017-10-20 18:14] VITALS: BP 106/45
== END 2017-10-20 18:19 | disposition home or self-care (01) ==
LOC: ER 13:48
DX: R74.0 Nonspecific elevation of levels of transaminase and lactic acid dehydrogenase [LDH] (principal); R11.0 Nausea
CPT/HCPCS: 74177; 76705; 81001; 83690; 84703; 85025; 96361; 96374; 96375; 96376; 99284; J1885; J2405; J2765; J7030; Q9967; 82040; 82247; 82310; 82374; 82435; 82565; 82947; 84075; 84132; 84155; 84295; 84450; 84460; 84520

== ENCOUNTER → 2017-11-13 | Outpatient (CLI) | payer BC ==
[~2017-11-13] MED LIST changes: +DICY20TA70 PO; +FEXO-72 PO; +GADOBENATE 529MG/1ML 15ML VIAL IVP ONE; +NS 0.9% 20 ML SDV 40 ML ONE
--- NOTE | 2017-11-13 09:54 | RADIOLOGY IMAGING REPORT ---
FACILITY[place] [facility] [place]IENT NAME: Tara Stoner : 1980 MR: [id number] V: [id number] EXAM DATE: ORDERING PHYSICIAN: ABDULAZIZ COSME TECHNOLOGIST: Location: [facility] - [place] Patient: Tara Stoner : 1980 Visit/Account:[id number] Date of Sevice: 11/13/2017 ABDOMEN W W/O CONTRAST COMPARISON: CT abdomen from 10/20/2017. HISTORY: 7 months of abdominal pain, history of cholecystectomy in August 2017, with nausea and tr ansaminitis. TECHNIQUE: Pre and post contrast multiplanar MRI of the abdomen utilizing T1 weighted and fluid sens itive sequences. Diffusion-weighted imaging was performed. MRCP was performed. CONTRAST: 12 mL Gadobenate intravenously MRI ABDOMEN FINDINGS: LIVER: Normal size, morphology and background signal intensity. No evidence of cirrhosis. Homogeneou s enhancement. BILIARY: The gallbladder is absent. There is mild central biliary prominence and common duct prominence which are within normal limits for postcholecystectomy state. The common d uct measures up to 6 mm maximally and tapers distally. There is no appreciable ductal stricture or fi lling defect. There is no evidence of choledocholithiasis. A small cystic duct remnant is noted. Panc reatic duct appears normal. SPLEEN: Unremarkable. Normal size. PANCREAS: Unremarkable. No appreciable lesion, fluid collection, ductal dilatation, or atrophy. ADRENALS: Unremarkable. KIDNEYS: Unremarkable. Symmetric enhancement without mass or hydronephrosis. GI/MESENTERY: Suboptimally assessed by MRI, and only partially imaged. No visible mass, obstruction , or bowel wall thickening. VASCULAR: Unremarkable. LYMPH NODES: No significantly enlarged lymph nodes. BONES: Suboptimally assessed by scan protocol but unremarkable. OTHER: Negative. IMPRESSION: 1. Mild central biliary prominence and common duct prominence which are within normal limits postcho lecystectomy. There is no evidence of choledocholithiasis. 2. Normal MRI appearance of the liver. Report Dictated By: Enrique Bourgeois at 11/13/2017 9:23 AM Report E-Signed By: Enrique Bourgeois at 11/13/2017 9:50 AM WSN:[id number]
== END ==
LOC: MRI 11-09 02:59
PROVIDERS: ATTEND Surgery
DX: Z90.49 Acquired absence of other specified parts of digestive tract (principal)
CPT/HCPCS: 74183; A9577; J7050

== ENCOUNTER 2018-05-26 03:57 | Observation (INO) | payer BC ==
[2018-05-26] VITALS (9 sets, daily range): BP systolic 101–123; BP diastolic 38–72
[~2018-05-26] VITALS: Ht 157.5 cm; Wt 50.8 kg
[~2018-05-26 03:57] MED LIST changes: +ACTI260C3 PO; +DEXT1TAB PO; -GADOBENATE 529MG/1ML 15ML VIAL IVP ONE; -NS 0.9% 20 ML SDV 40 ML ONE; +SCOP1PAT16 TD
[2018-05-26] MEDS ORDERED: FAMOTIDINE 20 MG TAB PO ONE (06:30)
[2018-05-26] MEDS ORDERED: MIDAZOLAM 2 MG/2 ML VIAL IVP PRN (06:30)
[2018-05-26] MEDS ORDERED: cefOXitin/DEX(*) 2GM/50ML PREM 50 ML IVPB ONE (06:30)
[2018-05-26] MEDS ORDERED: NORMOSOL R SOLN(*) 1000 ML BAG 1,000 ML IV PRN (06:30)
[2018-05-26] MEDS ORDERED: LIDOCAINE/SOD BICARB 8.4% SYR ID ONE (06:30)
[2018-05-26 06:43] LABS: PLATELET COUNT, AUTOMATED 293 K/uL (150-450)
[2018-05-26] MEDS ORDERED: SCOPOLAMINE 1.5 MG PATCH TD ONE (06:45)
[2018-05-26] MEDS ORDERED: MANNITOL* (20%)100 GM/500ML BG 500 ML IVPB ONE (06:59)
[2018-05-26] MEDS ORDERED: ROPIVACAINE 0.2% 20 ML VIAL ONE (06:59)
[2018-05-26] MEDS ORDERED: APREPITANT 40 MG CAP PO ONE (07:30)
[2018-05-26] MEDS ORDERED: PROPOFOL EMUL(*) 10MG/ML 20 ML 20 ML ONE (07:59)
[2018-05-26] MEDS ORDERED: ONDANSETRON 4 MG/2 ML VIAL ONE ×2 (07:59→10:23)
[2018-05-26] MEDS ORDERED: ROCURONIUM BROM 10 MG/ML 10 ML ONE (07:59)
[2018-05-26] MEDS ORDERED: DEXAMETHASONE SOD 4 MG/ML VIAL ONE (08:01)
[2018-05-26] MEDS ORDERED: HYDROmorphone HCL 2 MG/ML SDV ONE (08:05)
[2018-05-26] MEDS ORDERED: SUGAMMADEX SOD 200 MG/2 ML SDV ONE (09:25)
--- NOTE | 2018-05-26 09:53 | Post Operative Note ---
Operative Note - BILLING CLERK Operative Day Date: May 26, 2018 Time: 09:51 Physicians Surgeon: Rei Horse Rancher: Dago Anesthesia: GETA Diagnosis Pre-Op Diagnosis: Dysmenorrhea Dyspareunia Endometriosis Post-Op Diagnosis: same Procedure Findings: endometriosis enlarged uterus with subserosal uterine fibroid Procedure(s): RATLH Bilateral salpingectomy Cystoscopy Specimen Removed:(Maybe N/A): uterus tubes Complications: #[id number] Fluids Fluids: 1000 ml Estimated Blood Loss: minimal Dictated Date OP Note Dictated: May 26, 2018 Time OP Note Dictated: 09:53 Copies to: DENNIS TOBIAS MD ; DENNIS TOBIAS MD May 26, 2018 09:53
[2018-05-26] MEDS ORDERED: DLR(*) 1000 ML BAG 1,000 ML IV PRN (09:57)
[2018-05-26] MEDS ORDERED: ONDANSETRON 4 MG/2 ML VIAL IVP PRN (10:00)
[2018-05-26] MEDS ORDERED: ACETAMINOPHEN 325 MG TAB PO PRN (10:00)
[2018-05-26] MEDS ORDERED: ZOLPIDEM TARTRATE 10 MG TAB PO PRN (10:00)
[2018-05-26] MEDS ORDERED: IBUP800T37 PO (10:03)
[2018-05-26] MEDS ORDERED: OXYC-865 PO (10:03)
[2018-05-26] MEDS ORDERED: DOCU-416 PO (10:03)
[2018-05-26] MEDS ORDERED: fentaNYL CITR 100 MCG/2 ML AMP ONE ×2 (10:14→10:30)
[2018-05-26] MEDS ORDERED: ACETAMINOPHEN(*)1000 MG/100 ML 100 ML IVPB ONE (10:34)
[2018-05-26] MEDS ORDERED: KETOROLAC 30 MG/ML VIAL IVP SCH (12:00)
[2018-05-26] MEDS: SIMETHICONE 80 MG CHEW CHEW PRN ×4 (12:01→20:37)
--- NOTE | 2018-05-26 12:38 | OPERATIVE REPORT 1 ---
EVENT DATE: May 26, 2018 SURGEON: Manoj Minaya MD ANESTHESIOLOGIST: Cheryl ANESTHESIA: General endotracheal. DECORATOR INSPECTOR: MALGORZATA Malagon PREOPERATIVE DIAGNOSIS 1. Secondary dysmenorrhea. 2. Endometriosis. 3. Dyspareunia. 4. Menorrhagia. 5. Pelvic and perineal pain. POSTOPERATIVE DIAGNOSIS 1. Secondary dysmenorrhea. 2. Endometriosis. 3. Dyspareunia. 4. Menorrhagia. 5. Pelvic and perineal pain. PROCEDURE PERFORMED 1. Robotic-assisted total laparoscopic hysterectomy. 2. Bilateral salpingectomy. 3. Diagnostic cystoscopy. ESTIMATED BLOOD LOSS Minimal. FLUIDS 1L IV crystalloid. URINE OUTPUT Not measured. FINDINGS Enlarged boggy uterus with an anterior small uterine fibroid. Prior tubal ligation apparent. 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 PROCEDURE IN DETAIL The patient was brought to the operating room with a working IV and placed in the dorsal supine position. She was placed under general endotracheal anesthesia and prepped and draped in the usual sterile fashion. She was then moved to the dorsal lithotomy position. A weighted speculum was placed in the vagina and cervix was grasped on the anterior lip with a single tooth tenaculum. It was carefully surrounded to a depth of 9 cm retroverted. The cervix was carefully dilated in order accommodate a large VCare uterine manipulator. It was passed through the cervix into the uterus, bulb inflated and secured and the VCare cup was sutured to the cervix. The colpotomy cup was approximated against the VCare cup and secured in place. Contreras catheter was placed in the bladder and placed to dependent drainage. The legs were brought back to the supine position and gloves were changed. We proceeded with laparoscopic by infiltrating the umbilicus with 0.2% Naropin. It was first measured at least 12 cm above the target anatomy. An 8 mm linear incision was made in the umbilicus and Veress needle was passed through this incision and into the abdomen while stabilizing the anterior abdominal wall. A pneumoperitoneum was created to an intra-abdominal pressure of 20 mmHg. The Veress needle was then removed and an 8 mm robotic bladeless trocar was passed through this incision while stabilizing the anterior abdominal wall into the abdomen. This was performed under direct visualization with a scope. The abdomen was inspected with the above findings noted. Additional robotic ports were placed as follows: 8 cm left lateral of the umbilical incision and 8 cm left lateral to this one. An community program assistant port and the robotic port each placed under direct visualization with the scope. The same was performed on the right side, 8 cm spacing. Robotic ports were placed, 8 mm size, under direct visualization with a scope. All ports were adjusted for remote center including the camera port. At this point, the patient was placed in the Trendelenburg position at 23 degrees and bowel was swept away from the pelvis. The robot was brought over the patient and the camera port was docked. The camera was inserted into the abdomen and the pelvic anatomy was visualized and a targeting procedure was performed and passed. Each additional robotic port was then docked and robotic instruments were docked as well. Each instrument was brought into the pelvis under direct visualization with the robotic camera. Once that was completed, I scrubbed out of the bedside and presented to the console. The hysterectomy proceeded as follows: The right fallopian tube was grasped and the normal ovary below was visualized. The fallopian tube was dissected away from this ovary to the mesosalpinx using the vessel sealer. This was performed up to the uteroovarian ligament, which was likely fashioned, doubly cauterized and transected with the vessel sealer. The round ligament was then cauterized and transected entering the broad ligament and it into anterior and posterior leaflet. The anterior leaflet was continued anteriorly over the VCare cup indentation of the vagina and dissected the bladder away from this area. The posterior leaflet of the broad ligament was dissected down towards the uterosacral ligament. This exposed the uterine vasculature, which were doubly cauterized and transected with the vessel sealer. This was performed in a perpendicular fashion. Following this, parallel bites were made along the lateral uterus down to the VCare cup. A colpotomy incision was made to identify the VCare cup and the uterus was shifted towards the patient's right side to expose the left adnexa and the procedure continued as follows: The left fallopian tube was dissected through the mesosalpinx away from the ovary up to the uteroovarian ligament, which was cauterized and transected with the vessel sealer. The round ligament was cauterized and transected, entering the broad ligament and it into anterior and posterior leaflets. Anteriorly, the bladder dissection was completed and posteriorly the uterine vessels were skeletonized to the uterosacral ligament. Uterine vessels on this side were taken at a perpendicular bite, doubly cauterized and transected followed by parallel bites along the lateral uterus down to and overlying the VCare cup. The colpotomy incision was then completed in a circumferential fashion following the VCare cup through the anterior vagina through the uterosacral ligaments posteriorly and completing circumferentially to the other side. This freed the uterus, which was removed through the vagina. The remaining vaginal cuff was repaired as follows: An 0 Vicryl was used to perform [id number] stitch on each angle, incorporating the uterosacral ligament on that side. These were tied and secured. The remaining vaginal cuff was closed with a 2-0 V-Loc suture in a running nonlocking fashion. Upon completion, there was excellent hemostasis and a good support of the vaginal cuff. The area was irrigated and suctioned dry. No visible complications. Therefore, the procedure was terminated and all robotic instruments were removed. Pneumoperitoneum was suctioned out. The robot was then docked and all trocars were removed. Skin incisions were repaired with 4-0 Monocryl simple subdermal and covered with Dermabond skin adhesive. Diagnostic cystoscopy was performed, visualizing the entire bladder, which was observed to be without injury. The remaining ureter orifices were visualized with strong urine jets from each side, confirming ureteral patency. Cystoscopy was completed and the bladder was drained. The patient was returned to the dorsal supine position, awakened from general anesthesia in stable condition and taken to recovery. Sponge, lap, needle and instrument counts were all correct x3. She tolerated the procedure well. PHILIP
[2018-05-26] MEDS ORDERED: GLYCERIN/WITCH HAZEL LEAF 1 PK TP PRN (13:10)
[2018-05-26] MEDS: HYDROmorphone HCL 2 MG TAB PO PRN ×2 (14:42→18:33)
[2018-05-26] MEDS: KETOROLAC 30 MG/ML VIAL IVP SCH ×2 (16:40→23:05)
[2018-05-26] MEDS: DOCUSATE CALCIUM 240 MG CAP PO SCH (20:37)
[2018-05-26] MEDS: FAMOTIDINE 20 MG TAB PO SCH (20:37)
[2018-05-27 05:39] VITALS: BP 92/59
[2018-05-27] MEDS: KETOROLAC 30 MG/ML VIAL IVP SCH (05:42)
[2018-05-27 06:21] LABS: PLATELET COUNT, AUTOMATED 240 K/uL (150-450)
[2018-05-27 08:30] VITALS: BP 107/84
[2018-05-27] MEDS: DOCUSATE CALCIUM 240 MG CAP PO SCH (08:50)
[2018-05-27] MEDS: FAMOTIDINE 20 MG TAB PO SCH (08:50)
[2018-05-27] MEDS: HYDROmorphone HCL 2 MG TAB PO PRN (09:54)
[2018-05-27] MEDS ORDERED: INFLUENZA VIRUS VAC 0.5ML SYR IM ONLY ONE (10:00)
--- NOTE | 2018-05-27 10:21 | OB/GYN Progress Note ---
OB Subjective Progress Notes Subjective Doing well. Pain well controlled and ambulating well. Voiding without difficulty. Ready to go home. GI: NEG Nausea : Voiding Well Pain: Mild OB Objective Physical Exam Vital Signs Date Time Temp Pulse Resp B/P (MAP) Pulse Ox O2 Delivery O2 Flow Rate FiO2 05/27/18 08:30 95 05/27/18 08:30 97.7 64 18 107/84 (92) Room Air 05/26/18 16:45 2.0 Intake and Output 05/27/18 06:59 Intake Total 2600 ml Output Total 2100 ml Balance 500 ml Intake Oral 1000 ml IV Total 1600 ml Output Urine Total 2100 ml # Voids 7 General Appearance: Alert/Awake/No Acute Distress Neurological: No Gross deficits Eyes: Normal Extraocular Movement & Vison Cardiovascular: Normal Rhythm & Peripheral Pulses, Regular Rate and Rhythm Respiratory: No Respiratory Distress, Clear to Auscultation Abdomen: Soft, Non-Tender, Non-Distended Integumentary: Skin Intact without Lesions or Rash Psychological: Alert & Oriented X3, Appropriate Mood & Affect Result Diagram: 05/27/18 0605 Assessment and Plan 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
--- NOTE | 2018-05-27 10:22 | Short(Outpt) Discharge Summary ---
Discharge Summary Reason for Hosp/Final Diag: (1) Encounter for postoperative care (2) Status post robot-assisted surgical procedure (3) History of robot-assisted laparoscopic hysterectomy Departure Discharge to: Home, Self Care Discharge Instructions Home Meds Active Scripts Oxycodone Hcl/Acetaminophen (PERCOCET 5-325 MG TABLET) 1 Each Tablet, 1 EACH PO Q4-6H PRN for PAIN, #20 TAB 0 Refills TAKE 1 TABLET NEEDED FOR PAIN - NO CLOSER THAN EVERY 4-6 HOURS. Prov:ADRIANA HDZ 05/26/18 Dicyclomine Hcl (DICYCLOMINE HCL) 20 Mg Tablet, 1 TAB PO QID PRN for SPASMS, #60 TAB 3 Refills Prov:ABDULAZIZ COSME MD 11/13/17 Reported Medications Scopolamine (Scopolamine) 1 Mg/3 Day Patch.td.3, 1.5 MG TD ONCE 05/17/18 Activated Charcoal (CHARCOAL, ACTIVATED) 260 Mg Capsule, 260 MG PO QHS PRN for NAUSEA, CAPSULE 05/17/18 Dextrose/Fructose/Sodium Cit (NAUZENE TABLET CHEW) 1 Each Tab.chew, 2 EACH PO QID, TAB.CHEW 05/17/18 Acetaminophen With Codeine # 3 (TYLENOL WITH CODEINE #3 TABLET) 1 Each Tablet, 1 EACH PO TID, TAB 05/17/18 Ibuprofen (IBUPROFEN) 800 Mg Tablet, 1 TAB PO 2-3XD, TAB 07/20/17 Follow up Referrals: LEARNING OPERATIONS SPECIALIST - In Two Weeks @ [facility] with DENNIS TOBIAS MD Diet: Regular Activity: As Tolerated, No Heavy Lifting, No Exertion Copies to: DENNIS TOBIAS MD ; DENNIS TOBIAS MD May 27, 2018 10:22
[2018-05-27] MEDS ORDERED: IBUPROFEN 800 MG TAB PO PRN (11:00)
== END 2018-05-27 10:21 | disposition home or self-care (01) ==
LOC: OR 03:57 → INTOOBSV 11:45 → PED 11:45
PROVIDERS: ADMIT Obstetrics & Gynecology; ATTEND Obstetrics & Gynecology
DX: N80.3 Endometriosis of pelvic peritoneum (principal); N94.5 Secondary dysmenorrhea; R10.33 Periumbilical pain; N94.10 Unspecified dyspareunia; N92.0 Excessive and frequent menstruation with regular cycle; R10.2 Pelvic and perineal pain; N80.0 Endometriosis of uterus; D25.2 Subserosal leiomyoma of uterus; N72 Inflammatory disease of cervix uteri; Z23 Encounter for immunization
CPT/HCPCS: 36415; 58575; 84703; 85014; 85018; 85025; 88307; 90674; G0378; J0131; J0694; J1100; J1170; J1885; J2250; J2405; J2704; J2795; J3010; J8501; S2900; 90471

== ENCOUNTER → 2018-06-21 | Outpatient (REF) | payer BC ==
[~2018-06-21] MED LIST changes: +OXYC-865 PO
[2018-06-21 12:01] LABS: PLATELET COUNT, AUTOMATED 317 K/uL (150-450)
== END ==
LOC: ZZSTITCHES 11:46
PROVIDERS: ATTEND Physician Assistant
DX: R06.02 Shortness of breath (principal)
CPT/HCPCS: 82040; 82247; 82310; 82374; 82435; 82565; 82947; 84075; 84132; 84155; 84295; 84450; 84460; 84520; 85025; 85379

== ENCOUNTER → 2018-09-10 | Outpatient (CLI) | payer BC ==
--- NOTE | 2018-09-10 09:46 | RADIOLOGY IMAGING REPORT ---
FACILITY: [facility] - [place] PATIENT NAME: Tara Stoner : 1980 MR: [id number] V: [id number] EXAM DATE: ORDERING PHYSICIAN: ABDULAZIZ COSME TECHNOLOGIST: Location: [facility] - [place] Patient: Tara Stoner : 1980 Visit/Account:[id number] Date of Sevice: 09/10/2018 ADDENDUM #2 ADDENDUM: The chest CT scan from 09/10/2018 is compared to a previous abdominal CT scan from 10/20/2017, which includes the lung bases. The right pulmonary hilum was not included on the previous abdominal CT sca n. The two right middle lobe nodules are essentially unchanged in size compared to previous, when di fferences in measurement technique are taken into account. Lack of change compared to previous is re assuring. A follow-up CT scan is recommended in six months to confirm stability. Results were discussed with ABDULAZIZ COSME at 09/10/2018 2:10 PM. Report Dictated By: Ruperto Lanza MD at 09/10/2018 2:08 PM Report E-Signed By: Ruperto Lanza MD at 09/10/2018 2:10 PM ADDENDUM #1 ADDENDUM: We have been unable to find the prior chest CT scan which [place] of state. Report Dictated By: Ruperto Lanza MD at 09/10/2018 12:49 PM Report E-Signed By: Ruperto Lanza MD at 09/10/2018 12:[address] scan of the chest, abdomen, and pelvis with contrast. HISTORY: Abdominal pain, pulmonary nodule. COMPARISON: Abdominal MRI scan 11/13/2017, and abdominal ultrasound 10/20/2017. 3 mm thick and [address] images were obtained of the chest, abdomen, and pelvis using 75 mL intravenous Isovue-370. No oral contrast. Coronal and sagittal computer reconstructions were perfo rmed. One of the following dose optimization techniques was utilized in the performance of this exam : Automated exposure control; adjustment of the mA and/or kV according to the patient's size; or use of an iterative reconstruction technique. Specific details can be referenced in the facility's [facility] CT exam operational policy. FINDINGS: The ascending aorta measures 3.2 cm in AP diameter. The upper descending aorta measures 1.9 cm in gr eatest AP diameter. A 1.8 cm lymph node is present in the right pulmonary hilum. The mediastinum an d left pulmonary hilum are otherwise unremarkable. The trachea and central bronchi are unremarkable. A 1.2 cm indistinct noncalcified nodule is present in the lateral segment of the right middle lobe. A 5 mm noncalcified nodule is present in the anterior aspect of the right middle lobe. Mild streak y densities are scattered elsewhere in the periphery of both lungs. No pleural fluid. The liver and spleen are normal in size. The gallbladder is absent. The intrahepatic bile ducts are minimally dilated. The extrahepatic bile ducts are upper limits of normal in size. The pancreatic duct is upper limits of normal in size. The pancreas is normal in size. The portal vein is patent. The kidneys and adrenal glands are normal in size. No hydronephrosis. The renal parenchyma is slig htly heterogeneous probably related to incomplete opacification due to the timing of the contrast gin us. The abdominal aorta is normal in size. The uterus is absent. The ovaries are not well visualized. Phleboliths are present in the true pelv is. The urinary bladder is nonopacified. Fluid-filled nondilated small bowel loops are scattered in the abdomen and pelvis. Small amounts of gas and stool are scattered in the colon. A gas-filled ap pendix is normal in size. Fluid and gas containing structures are present in the right pelvis probab ly representing unopacified bowel loops. The bones are unremarkable. The previous chest CT scan from 02/01/2018 is not currently available for comparison. IMPRESSION: 1.2 cm indeterminate right middle lobe nodule. 5 mm right middle lobe nodule. Borderline right hilar adenopathy. Absent gallbladder. Borderline dilated intrahepatic bile ducts. No distally obstructing s one or mass is identified. Absent uterus. Otherwise negative abdomen and pelvis. COMMENT: We will attempt to obtain the previous chest CT scan. If this study can be located, an addendum repo rt be issued.Report Dictated By: Ruperto Lanza MD at 09/10/2018 9:17 AM Report E-Signed By: Ruperto Lanza MD at 09/10/2018 9:41 AM WSN:[id number]
== END ==
LOC: CT 02:31
PROVIDERS: ATTEND Surgery
DX: R10.9 Unspecified abdominal pain (principal)
CPT/HCPCS: 71260; 74177

== ENCOUNTER → 2018-09-10 | Outpatient (CLI) | payer BC ==
[~2018-09-10] MED LIST changes: +IOPAMIDOL 76% 100 ML INFUS BTL 100 ML ONE
--- NOTE | 2018-09-10 09:46 | RADIOLOGY IMAGING REPORT ---
FACILITY: [facility] [place] PATIENT NAME: Tara Stoner : 1980 MR: [id number] V: [id number] EXAM DATE: ORDERING PHYSICIAN: ABDULAZIZ COSME TECHNOLOGIST: Location: [facility] - [place] Patient: Tara Stoner : 1980 Visit/Account:[id number] Date of Sevice: 09/10/2018 ADDENDUM #2 ADDENDUM: The chest CT scan from 09/10/2018 is compared to a previous abdominal CT scan from 10/20/2017, which includes the lung bases. The right pulmonary hilum was not included on the previous abdominal CT sca n. The two right middle lobe nodules are essentially unchanged in size compared to previous, when di fferences in measurement technique are taken into account. Lack of change compared to previous is re assuring. A follow-up CT scan is recommended in six months to confirm stability. Results were discussed with ABDULAZIZ COSME at 09/10/2018 2:10 PM. Report Dictated By: Ruperto Lanza MD at 09/10/2018 2:08 PM Report E-Signed By: Ruperto Lanza MD at 09/10/2018 2:10 PM ADDENDUM #1 ADDENDUM: We have been unable to find the prior chest CT scan which may have been performed out of state. Report Dictated By: Ruperto Lanza MD at 09/10/2018 12:49 PM Report E-Signed By: Ruperto Lanza MD at 09/10/2018 12:[address] scan of the chest, abdomen, and pelvis with contrast. HISTORY: Abdominal pain, pulmonary nodule. COMPARISON: Abdominal MRI scan 11/13/2017, and abdominal ultrasound 10/20/2017. 3 mm thick and [address] images were obtained of the chest, abdomen, and pelvis using 75 mL intravenous Isovue-370. No oral contrast. Coronal and sagittal computer reconstructions were perfo rmed. One of the following dose optimization techniques was utilized in the performance of this exam : Automated exposure control; adjustment of the mA and/or kV according to the patient's size; or use of an iterative reconstruction technique. Specific details can be referenced in the facility's [facility] exam operational policy. FINDINGS: The ascending aorta measures 3.2 cm in AP diameter. The upper descending aorta measures 1.9 cm in gr eatest AP diameter. A 1.8 cm lymph node is present in the right pulmonary hilum. The mediastinum an d left pulmonary hilum are otherwise unremarkable. The trachea and central bronchi are unremarkable. A 1.2 cm indistinct noncalcified nodule is present in the lateral segment of the right middle lobe. A 5 mm noncalcified nodule is present in the anterior aspect of the right middle lobe. Mild streak y densities are scattered elsewhere in the periphery of both lungs. No pleural fluid. The liver and spleen are normal in size. The gallbladder is absent. The intrahepatic bile ducts are minimally dilated. The extrahepatic bile ducts are upper limits of normal in size. The pancreatic duct is upper limits of normal in size. The pancreas is normal in size. The portal vein is patent. The kidneys and adrenal glands are normal in size. No hydronephrosis. The renal parenchyma is slig htly heterogeneous probably related to incomplete opacification due to the timing of the contrast gin us. The abdominal aorta is normal in size. The uterus is absent. The ovaries are not well visualized. Phleboliths are present in the true pelv is. The urinary bladder is nonopacified. Fluid-filled nondilated small bowel loops are scattered in the abdomen and pelvis. Small amounts of gas and stool are scattered in the colon. A gas-filled ap pendix is normal in size. Fluid and gas containing structures are present in the right pelvis probab ly representing unopacified bowel loops. The bones are unremarkable. The previous chest CT scan from 02/01/2018 is not currently available for comparison. IMPRESSION: 1.2 cm indeterminate right middle lobe nodule. 5 mm right middle lobe nodule. Borderline right hilar adenopathy. Absent gallbladder. Borderline dilated intrahepatic bile ducts. No distally obstructing s one or mass is identified. Absent uterus. Otherwise negative abdomen and pelvis. COMMENT: We will attempt to obtain the previous chest CT scan. If this study can be located, an addendum repo rt be issued.Report Dictated By: Ruperto Lanza MD at 09/10/2018 9:17 AM Report E-Signed By: Ruperto Lanza MD at 09/10/2018 9:41 AM WSN:[email or web address]
== END ==
LOC: CT 06:55
PROVIDERS: ATTEND Nurse Practitioner
DX: R91.1 Solitary pulmonary nodule (principal); Z90.49 Acquired absence of other specified parts of digestive tract; Z90.710 Acquired absence of both cervix and uterus
CPT/HCPCS: Q9967